=== PATIENT | female | born 1970 | race Caucasian/White ===

== ENCOUNTER 2021-01-28 19:55 | Emergency (ER) | payer OTHER ==
[~2021-01-28] VITALS: Ht 162.6 cm; Wt 81.7 kg
[~2021-01-28 19:55] MED LIST: AMBIEN 5 MG TABL5 M1 PO; BACTRIM DS TAB1 EACH PO; BACTROBAN15 GM TP; CEPHALEXIN 500500 M3 PO; CIPROFLOXACIN500 M1 PO; CUBICIN500 MG IVPB; DIFLUCAN150 MG PO; FLEXERIL PO; HYDROCODONE-AP1 EAC6 PO; IBUPROFEN 800800 M1 PO; NOHOMEMEDICATIONS; NORCO 5-325 TA1 EACH PO; ONDANSETRON HCL4 M2 PO; PROZAC20 MG PO; PYRIDIUM200 MG PO
[2021-01-28 20:01] VITALS: BP 152/96
[2021-01-28] MEDS ORDERED: AMBIEN 10 MG TA10 MG PO (20:04)
[2021-01-28] MEDS ORDERED: FLEXERIL PO (20:31)
== END 2021-01-28 20:36 | disposition home or self-care (01) ==
LOC: M.ERS 19:55
DX: M62.838 Other muscle spasm (principal); M25.512 Pain in left shoulder; M54.2 Cervicalgia; R51.9 Headache, unspecified; F32.9 Major depressive disorder, single episode, unspecified; Z79.899 Other long term (current) drug therapy; V89.2XXA Person injured in unspecified motor-vehicle accident, traffic, initial encounter; Y93.I9 Activity, other involving external motion; Y92.89 Other specified places as the place of occurrence of the external cause; Y99.8 Other external cause status